=== PATIENT | male | born 1990 | race Caucasian/White ===

== ENCOUNTER 2018-03-04 03:49 | Emergency (ER) | payer SELFPAY ==
[~2018-03-04] VITALS: Ht 170.2 cm; Wt 68.2 kg
[2018-03-04 03:54] VITALS: BP 144/83
== END 2018-03-04 05:10 | disposition home or self-care (01) ==
LOC: EMS 03:51
DX: J06.9 Acute upper respiratory infection, unspecified (principal); L03.011 Cellulitis of right finger; L03.012 Cellulitis of left finger; J45.909 Unspecified asthma, uncomplicated; F15.90 Other stimulant use, unspecified, uncomplicated; F17.210 Nicotine dependence, cigarettes, uncomplicated
CPT/HCPCS: 99283